=== PATIENT | male | born 1995 | race Caucasian/White ===

== ENCOUNTER 2019-09-19 11:37 | Emergency (ER) | payer SELFPAY ==
[2019-09-19 11:43] VITALS: BP 133/72; PULSE 81; RESP 18; TEMP 36.6; O2SAT 96
--- NOTE | 2019-09-19 11:44 | ED.GENADUL_ITS ---
Discharge Plan Disposition Patient Disposition: HOME Condition: Stable Discharge Details Chief Complaint: SutureRem Clinical Impression: Visit for suture removal Primary Care Provider: None,None ED Provider: Lynn Cabrera Home Meds and New Rx's Prescriptions: Continued albuterol sulfate [ProAir HFA] 8.5 GM HFA aerosol inhaler 2 puff Inhalation Q4H PRN Qty: 1 RF: 0 (DME) inhalational spacing device [Aerochamber Mini] 1 EACH spacer 1 ea Miscellaneous Q4H PRN Qty: 1 RF: 0 Discharge Instructions Instructions: Stitches Removal (ED) Additional Instructions: Keep wound clean and dry. Cover wound with bandage if risk of contamination. Otherwise you can keep the wound open to air if resting at home to allow edges to dry and heal. Follow up with your primary care doctor in 1 week as needed. Return to the emergency department with any worsening or new concerning symptoms. Discharge Data Discharge Date/Time-TO BE ENTERED AT DEPARTURE: 09/19/19 12:27 Discharge Physician: Lynn Cabrera Medical Decision Making 24-year-old male presents for suture removal of left foot after 9 nylon sutures placed 3 weeks ago at [facility] after he cut his foot on the sharp edge of metal shelf. Tetanus up-to-date. Called [facility] ER and spoke with the nursing scrap preparation supervisor who was able to confirm that patient had 9 nylon sutures placed 3 weeks ago. He was not given antibiotics. There is a crusted erosion noted overlying the wound. 9 sutures were removed at bedside with minimal difficulty. A nonadherent dressing was placed. Patient has crutches. Usual and customary return precautions given prior to discharge. Medical Records Medical records reviewed: Yes I reviewed the patient's medical records. HPI General Mode of arrival: ambulatory . Date/Time Provider Initiated Documentation: 09/19/19 11:43 . Limitations to Documentation: no limitations . Information obtained by: patient . HPI Narrative: Patient is a 24-year-old male who presents for suture removal of his left foot after sutures placed 3 weeks ago at [facility]. Patient states he hit his left foot on a metal shelf 3 weeks ago and was seen at [facility] where they placed 9 sutures to the plantar surface of his left foot. He states he lives in [place] and was easier for him to come here for suture removal. He has been changing the dressing regularly and denies any fever, increased pain, redness or swelling. He states his tetanus is up-to-date last year. Related Data Home Medications Medication Instructions Recorded Confirmed albuterol sulfate [ProAir HFA] 2 puff INHALATION Q4H PRN #1 06/13/16 09/19/19 inhaler inhalational spacing device #1 inhaler 06/13/16 [Aerochamber Mini] Allergies Allergy/AdvReac Type Severity Reaction Status Date / Time No Known Drug Allergies Allergy Unverified 07/10/17 10:34 seasonal allergies Allergy Unknown seasonal Uncoded 07/10/17 10:34 allergies Review of Systems All systems reviewed & are unremarkable except as noted in HPI and below Constitutional Constitutional: Reports as per HPI, Denies chills and Denies fever(s) Eyes Eyes: Denies blurry vision ENT Ears, Nose, Mouth, and Throat: Denies dizziness, Denies sore throat and Denies t hroat swelling Cardiovascular Cardiovascular: Denies chest pain and Denies dyspnea Respiratory Respiratory: Denies cough and Denies dyspnea Gastrointestinal Gastrointestinal: Denies abdominal pain, Denies diarrhea and Denies vomiting Genitourinary Genitourinary: Denies hematuria and Denies dysuria Musculoskeletal Musculoskeletal: Denies back pain and Denies numbness Integumentary/Breasts Skin/Breast: Denies lesions and Denies rash Neurologic Neurologic: Denies dizziness, Denies localized weakness and Denies numbness Allergic/Immunologic Allergic/Immunologic: Denies throat swelling [facility] [place] Medical History (Updated 09/19/19 @ 12:11 by Lynn Cabrera DO) Anxiety Asthma Depression Seasonal allergic rhinitis Surgical History Circumcision Family History Mother Neoplasm renal cell cancer Other Neoplasm MGaunt -lung, MGM- breast, MGGM-stomach, MGGF-mouth Asthma MGM Father No problems noted. Other Healthy adult on routine physical examination Social History Smoking/Tobacco Use Status: Current every day Tobacco Type: pipe Alcohol Intake: current Alcohol Intake frequency: a few times a week Drug use: Daily Substance use type: marijuana Do you feel safe at home: Yes Do you feel safe in your relationship?: Yes Exam Const General: cooperative, healthy appearing and no acute distress HENMT Head: normal to inspection Mouth: oral mucosae normal Eyes General: appearance normal, both eyes and all related structures Neck Neck: normal visual inspection Resp Effort & Inspection: normal respiratory effort and able to speak in complete sentences Cardio Rate: regular rate Neuro General: patient alert, patient awake and patient oriented x3 Motor: muscle tone normal throughout Extrem Ankle/foot/toe images: 1. Crusted erosion noted in mid plantar surface of foot. There are 9 nylon sutures noted embedded within wound. There is no surrounding edema, erythema, ecchymosis or crepitus. Psych Appearance: grossly normal Affect: normal affect
[2019-09-19 12:20] VITALS: BP 133/72; PULSE 81; RESP 18; TEMP 36.6; O2SAT 96
== END 2019-09-19 12:27 | disposition home or self-care (01) ==
PROVIDERS: Emergency Provider Physician Assistant
DX: S91.312A Laceration without foreign body, left foot, initial encounter (principal); W26.8XXA Contact with other sharp object(s), not elsewhere classified, initial encounter; Z48.02 Encounter for removal of sutures
CPT/HCPCS: 99281

== ENCOUNTER 2021-10-24 11:51 | Emergency (ER) | payer SELFPAY ==
[2021-10-24 12:28] VITALS: BP 131/79; PULSE 76; RESP 18; O2SAT 98
== END 2021-10-24 13:00 ==
LOC: ER 12:15
DX: Z53.21 Procedure and treatment not carried out due to patient leaving prior to being seen by health care provider (principal)

== ENCOUNTER 2021-10-25 07:24 | Emergency (ER) | payer SELFPAY ==
[2021-10-25 07:29] VITALS: BP 127/75; PULSE 75; RESP 16; TEMP 36.9; O2SAT 95
--- NOTE | 2021-10-25 08:00 | DI.RAD_ITS ---
Exam(s) XR HAND LT COMPLETE EXAM: XR HAND LT COMPLETE CLINICAL HISTORY: Crush injury R/O Fracture. TECHNIQUE: 2D digital imaging was performed. Three views. COMPARISON: No exams were available for comparison FINDINGS: BONES: There is a fracture of the tuft of the distal phalanx of the ring finger. There is some separ ation of the fracture fragment. . No bony destructive lesion is seen. JOINTS: No dislocation present. SOFT TISSUE: No foreign body IMPRESSION: Tuft fracture ring finger. DATA REPOSITORY: RADIATION DOSE DELIVERED:
--- NOTE | 2021-10-25 08:00 | DI.RAD_ITS ---
Exam(s) XR HAND RT COMPLETE EXAM: XR HAND RT COMPLETE CLINICAL HISTORY: Crush injury R/O Fracture. TECHNIQUE: 2D digital imaging was performed. Three views. COMPARISON: CR RIGHT HAND COMPLETE from 10/26/2011 FINDINGS: BONES: No acute fracture is present. No bony destructive lesion is seen. JOINTS: No dislocation present. SOFT TISSUE: Normal. IMPRESSION: Unremarkable radiographs of the right hand. DATA REPOSITORY: RADIATION DOSE DELIVERED:
--- NOTE | 2021-10-25 08:04 | ED.GENADUL_ITS ---
Discharge Plan Disposition Patient Disposition: HOME Condition: Stable Discharge Details Clinical Impression: Finger fracture, left Primary Care Provider: None,None ED Provider: Elisabeth Ace Home Meds and New Rx's Prescriptions: No Action albuterol sulfate [ProAir HFA] 8.5 GM HFA aerosol inhaler 2 puff Inhalation Q4H PRN Qty: 1 Rx Instructions: use with spacer (DME) inhalational spacing device [Aerochamber Mini] 1 EACH spacer 1 ea Miscellaneous Q4H PRN Qty: 1 Discharge Instructions Instructions: Finger Fracture (ED) Additional Instructions: There is a fracture of the distal tip of your left ring finger. No other fractures seen. Wear the splint daily until seen by Orthopedics. You may take it off to bathe. Rest, ice, compression, elevation. Please take Tylenol or Ibuprofen with food every 4-6 hours as needed for pain and swelling. Follow-up with orthopedic. They should call you for an appointment however you may call them as well. Stand Alone Forms: Work Release Referrals: Kwaku Don MD [ [facility] STAFF PHYSICIAN] - 1 week Discharge Data Discharge Date/Time-TO BE ENTERED AT DEPARTURE: 10/25/21 09:03 Medical Decision Making 26-year-old male presents to the ER with bilateral hand pain and swelling after dropping a manhole cover onto hands yesterday. X-rays of bilateral hands ordered. Ice pack ordered. X-ray shows a left ring finger tuft fracture. Mildly displaced. There is separation of the fracture fragment. Patient was placed in a baseball aluminum was not by staff mine warfare officer. Discussed home care and follow-up with Ortho, verbalized understanding. Patient was placed on a care management list to assist with orthopedic follow-up. This text was generated using [employer] system, please disregard any oddities of phrase or misspellings. Imaging Data Radiologic Study: Imaging: X-Ray Radiologist's impression: EXAM: XR HAND LT COMPLETE CLINICAL HISTORY: Crush injury R/O Fracture. TECHNIQUE: 2D digital imaging was performed. Three views. COMPARISON: No exams were available for comparison FINDINGS: BONES: There is a fracture of the tuft of the distal phalanx of the ring finger. There is some separation of the fracture fragment. . No bony destructive lesion is seen. JOINTS: No dislocation present. SOFT TISSUE: No foreign body IMPRESSION: Tuft fracture ring finger. HPI General Mode of arrival: ambulatory . Date/Time Provider Initiated Documentation: 10/25/21 07:32 . Limitations to Documentation: no limitations . Information obtained by: patient, RN notes reviewed and old records reviewed . HPI Narrative: 26-year-old male presents to the ER with chief complaint of bilateral hand pain status post dropping a manhole cover onto bilateral hands yesterday. Patient reports bilateral finger pain and swelling. No obvious deformity. Sensation distally intact. Cap refill less than 2 seconds. Denies any wrist pain. Did not take any medications this morning. No other associated symptoms. Did offer, ibuprofen which patient declined at this time. Does have a past medical history of anxiety, asthma, depression. Related Data Home Medications Medication Instructions Recorded Confirmed albuterol sulfate 90 mcg/actuation 2 puff inhalation Q4H PRN ##1 06/13/16 09/19/19 aerosol inhaler (ProAir HFA) inhalational spacing device ##1 06/13/16 (Aerochamber Mini) Allergies Allergy/AdvReac Type Severity Reaction Status Date / Time No Known Drug Allergies Allergy Unverified 07/10/17 10:34 seasonal allergies Allergy Unknown seasonal Uncoded 07/10/17 10:34 allergies General Stated Complaint: Trauma JOEY: 4 Review of Systems Musculoskeletal Musculoskeletal: Reports as per HPI, Reports arthralgias and Reports joint swelling PFSH All Active Problems (Updated 10/25/21 @ 08:46 by Elisabeth Ace NP) Knee sprain (Acute) Contusion, knee (Acute) Finger fracture, left (Acute) Medical History Anxiety Asthma Depression Seasonal allergic rhinitis Surgical History Circumcision Family History Mother Neoplasm renal cell cancer Other Neoplasm MGaunt -lung, MGM- breast, MGGM-stomach, MGGF-mouth Asthma MGM Father No problems noted. Other Healthy adult on routine physical examination Social History Smoking/Tobacco Use Status: Current every day Tobacco Type: pipe Smoking risk assessment performed?: Yes Alcohol Intake: former Drug use: Daily Substance use type: marijuana Do you feel safe at home: Yes Do you feel safe in your relationship?: Yes Exam Extrem General: normal to inspection Right upper extremity: hand Details: normal capillary refill, neurosensory exam normal, tenderness Location: of the 2nd digit, of the 3rd digit, of the 4th digit and of the 5th digit and swelling Location: of the 3rd digit, of the 4th digit and of the 5th digit Left upper extremity: hand Details: normal capillary refill, neurosensory exam normal, tenderness Location: of the 3rd digit, of the 4th digit and of the 5th digit and swelling Location: of the 2nd digit, of the 3rd digit, of the 4th digit and of the 5th digit Course Vital Signs Vital signs: Vital Signs Temperature 36.9 C 10/25/21 07:29 Pulse 75 10/25/21 07:29 Respiratory Rate 16 10/25/21 07:29 Blood Pressure 127/75 10/25/21 07:29 Pulse Oximetry 95 10/25/21 07:29 Temperature 36.9 C 10/25/21 07:29 Pulse 75 10/25/21 07:29 Respiratory Rate 16 10/25/21 07:29 Respiratory Effort Non-Labored 10/25/21 07:38 Respiratory Depth Normal 10/25/21 07:38 Respiratory Pattern Normal 10/25/21 07:38 Blood Pressure 127/75 10/25/21 07:29 Blood Pressure Position Sitting 10/25/21 07:29 Pulse Oximetry 95 10/25/21 07:29 Oxygen Delivery Method Room Air 10/25/21 07:29 Oxygen Flow Rate 0 10/25/21 07:29 Pain Level 0 10/25/21 07:29 Comment 10/25/21 07:29
[2021-10-25 09:03] VITALS: BP 127/75; PULSE 75; RESP 16; TEMP 36.9; O2SAT 95
== END 2021-10-25 09:03 | disposition home or self-care (01) ==
PROVIDERS: Emergency Provider Registered Nurse Emergency
DX: S62.635A Displaced fracture of distal phalanx of left ring finger, initial encounter for closed fracture (principal); G89.11 Acute pain due to trauma; M79.644 Pain in right finger(s); J45.909 Unspecified asthma, uncomplicated; F17.290 Nicotine dependence, other tobacco product, uncomplicated; W20.8XXA Other cause of strike by thrown, projected or falling object, initial encounter
CPT/HCPCS: 99284; 73130; 99283